=== PATIENT | male | born 1935 | race Caucasian/White ===

== ENCOUNTER 2021-12-18 20:31 | Emergency (ER) | payer OTHER, BC ==
[2021-12-18] MEDS ORDERED: DIPHTH,PERTUSS(ACELL),TET 0.5 ML DISP.SYRIN IM ONE ×2 (20:35→21:02)
[2021-12-18 21:19] VITALS: BP 145/76; PULSE 70; RESP 17; TEMP 98.9; BMI 21.5
== END 2021-12-18 22:29 | disposition home or self-care (01) ==
LOC: FER 20:31
PROC: 3E0234Z Introduction of Serum, Toxoid and Vaccine into Muscle, Percutaneous Approach (ICD-10-PCS; principal; 2021-12-18)
DX: S50.312A Abrasion of left elbow, initial encounter (principal); S09.90XA Unspecified injury of head, initial encounter; W01.0XXA Fall on same level from slipping, tripping and stumbling without subsequent striking against object, initial encounter
CPT/HCPCS: 70450-TC; 90471; 90715; 99284-25